=== PATIENT | male | born 1995 | race Caucasian/White ===

== ENCOUNTER 2020-03-29 10:31 | Emergency (ER) | payer MEDICAID ==
[~2020-03-29] VITALS: Ht 170.2 cm; Wt 95.4 kg
[2020-03-29] MEDS ORDERED: HYDROcodone/APAP 5/325 TABLET PO ONE (11:00)
[2020-03-29] MEDS ORDERED: ONDANSETRON ODT 4 MG PO ONE (11:00)
--- NOTE | 2020-03-29 11:19 | NUR ---
PT C/O RIGHT LOWER ABD PAIN WITH A LUMP FELT IN THE ABD. PT STATES THE PAIN RADIATES TO HIS TESTICLE. PT DENIES PAIN AT THIS TIME, BUT HAD PAIN THIS AM 08/13. PT DENIES CONSTIPATION, DIARRHEA, OR N/V.
[2020-03-29 11:39] LABS: BASOPHILS % (AUTO) 0 % (0-1); EOSINOPHILS % (AUTO) 1 % (1-7); LYMPHOCYTES % (AUTO) 28 % (22-44); MEAN CORPUSCULAR HEMOGLOBIN 31.2 pg (27.5-34.5); MEAN CORPUSCULAR HGB CONC 33.8 g/dL (33.2-36.2); MEAN PLATELET VOLUME 7.5 fL (7.4-10.4); MONOCYTES % (AUTO) 8 % (2-9); NEUTROPHILS % (AUTO) 64 % (42-75); PLATELET COUNT 246 x10^3/uL (130-400); RED BLOOD COUNT 5.19 x10^6/uL (4.38-5.82); RED CELL DISTRIBUTION WIDTH 13.3 % (9.4-14.8)
--- NOTE | 2020-03-29 11:40 | NUR ---
PT REFUSED MEDS DUE TO NOT EXPERIENCING PAIN AT THIS TIME.
[2020-03-29 11:44] LABS: ALANINE AMINOTRANSFERASE 64 U/L (12-78); ALBUMIN 4.1 g/dL (3.4-5.0); ANION GAP 6 mmol/L (5-15); CALCIUM 9.1 mg/dL (8.5-10.1); CHLORIDE 106 mmol/L (98-107)
[2020-03-29 11:47] LABS: ALKALINE PHOSPHATASE 68 U/L (45-117); BILIRUBIN,TOTAL 0.4 mg/dL (0.2-1.0); TOTAL PROTEIN 7.4 g/dL (6.4-8.2)
[2020-03-29 11:56] LABS: MICROSCOPIC NOT IND
[2020-03-29 12:08] LABS: MD SCAN
--- NOTE | 2020-03-29 12:11 | NUR ---
NO IV FOR CT SCAN
[2020-03-29] MEDS ORDERED: OMNIPAQUE 350 MG/ML, 100ML BOTTLE ONE (12:40)
--- NOTE | 2020-03-29 13:00 | NUR ---
PT RESTING IN BED WITH TV ON. PT DENIES PAIN AT THIS TIME. AWATING FURTHER ORDERS.
[2020-03-29 14:01] VITALS: BP 138/95
== END 2020-03-29 14:03 | disposition home or self-care (01) ==
LOC: ED 10:56
DX: K40.90 Unilateral inguinal hernia, without obstruction or gangrene, not specified as recurrent (principal)
CPT/HCPCS: 36415; 74177; 76870; 80053; 81003; 85025; 99285; Q9967